=== PATIENT | male | born 1980 | race African-American/Black ===

== ENCOUNTER 2017-10-01 13:52 | Emergency (ER) | payer OTHER ==
[~2017-10-01] VITALS: Ht 167.6 cm; Wt 77.1 kg
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
[2017-10-01] MEDS ORDERED: NORCO 5-325 TA1 EACH PO (16:45)
[2017-10-01] MEDS ORDERED: IBUPROFEN800 M1 PO (16:45)
[2017-10-01] MEDS ORDERED: CYCLOBENZAPRINE5 M2 PO (16:45)
[2017-10-01 17:08] VITALS: BP 132/79
== END 2017-10-01 17:09 ==
LOC: ERH 13:52
DX: R51 Headache (principal)
CPT/HCPCS: 71046; 72110; 73080-LT